=== PATIENT | female | born 1955 | race Caucasian/White ===

== ENCOUNTER → 2016-12-27 | Outpatient (CLI) | payer BC, OTHER ==
--- NOTE | 2016-12-27 10:31 | MM ---
Reason for exam: additional evaluation requested from prior study. Last mammogram was performed 3 years and 6 months ago. History: Patient is postmenopausal. Benign excisional biopsy of the left breast, October 23, 1998. Physical Findings: Nurse did not find any significant physical abnormalities on exam. MG 3D Diag Mammo W/Cad VEGA Spot compression CC view(s) were taken of the right breast. Prior study comparison: July 02, 2013, bilateral MG screening mammo w CAD. Nodular asymmetry centrally right breast CC view. This does not persist on additional views, precautionary 6 month follow up recommended. These results were verbally communicated with the patient and result sheet given to the patient on 12/27/16. ASSESSMENT: Probably benign, BI-RAD 3 RECOMMENDATION: Follow-up diagnostic mammogram of the right breast in 6 months.
== END | disposition home or self-care (01) ==
LOC: RADMAMWWP 08:49
PROVIDERS: ATTEND Ophthalmology
DX: D31.32 Benign neoplasm of left choroid (principal); Z88.5 Allergy status to narcotic agent
CPT/HCPCS: G0204; G0279

== ENCOUNTER → 2022-05-16 | Outpatient (CLI) | payer MEDICARE, BC ==
--- NOTE | 2022-05-16 09:58 | BD ---
EXAMINATION TYPE: Axial Bone Density DATE OF EXAM: 05/16/2022 CLINICAL HISTORY: 67 years old Female. ICD-10 CODE: M81.0 AGE-RELATED OSTEOPOROSIS Height: 66 Weight: 120.7 FRAX RISK QUESTIONS: Alcohol (3 or more units per day): no Family History (Parent hip fracture): no Glucocorticoids (More than 3mos): no History of Fracture in Adulthood: Patella Secondary Osteoporosis: 1. Type 1 Diabetes: no 2. Hyperthyroidism: no 3. Menopause before 45: no 4. Malnutrition: no 5. Chronic liver disease: no Rheumatoid Arthritis: no Current Tobacco Use: no RISK FACTORS HISTORY OF: Hip Fracture (Right/Left): no Spine Fracture: no: History of Wrist Fracture: no Surgery to Spine/Hip(right/left)/Wrist (right/left): no Family History of Osteoporosis: mother Active: yes Diet low in dairy products/other sources of calcium: no Postmenopausal woman: yes Take estrogen and/or progesterone medications: no Lost more than 2 inches in height since high school: no Frequent falls: no Poor Health: no Hyperparathyroidism: no Adrenal Insufficiency: no MEDICATIONS: Prednisone or other steroids: no Thyroid Medications:no Osteoporosis Medications: no Additional Medications: BP Meds, Additional History: EXAM MEASUREMENTS: Bone mineral densitometry was performed using the CURRENT System. Bone mineral density as measured about the Lumbar spine is: ----- L1-L4(G/cm2): 0.906 T Score Values are as follows: ----- L1: -3.1 ----- L2: -2.1 ----- L3: -1.8 ----- L4: -2.3 ----- L1-L4: -2.3 Z Score Values are as follows: ----- L1: -1.2 ----- L2: -0.2 ----- L3: 0.1 ----- L4: -0.3 ----- L1-L4: -0.3 Baseline Study Bone mineral density about the R hip (g/cm2): 0.664 Bone mineral density about the L hip (g/cm2): 0.643 T Score values are as follows: -----R Neck: -3.0 -----L Neck: -29 -----R Total: -2.7 -----L Total: -2.9 Z Score values are as follows: -----R Neck: -1.3 -----L Neck: -1.1 -----R Total: -1.2 -----L Total: -1.4 Baseline Study FRAX%s: The graph provided illustrates a 23.8% chance for a major osteoporotic fx and a 7.7% chance f or the hips probability for fx in 10 years time. IMPRESSION: Osteoporosis (T Score less than -2.5). There is increased fracture risk and therapy is usually indicated based on age. Re-Screen 1-2 years. NOTE: T-SCORE=SD OF THE YOUNG ADULT MEAN.
--- NOTE | 2022-05-17 08:00 | MM ---
Reason for Exam: Screening (asymptomatic). Last mammogram was performed 8 year(s) and 10 month(s) ago. Patient History: Menarche at age 12. First Full-Term at age 22. Hysterectomy at age 36. Postmenopausal. 10/23/1998, Benign Excisional Biopsy on the left side. Risk Values: Catrina 5 year model risk: 1.9%. NCI Lifetime model risk: 7.0%. Prior Study Comparison: 04/29/2005 Bilateral Diagnostic Mammogram, [facility]. 07/02/2013 Bilateral Screening Mammogram, [facility]. 12/27/2016 Bilateral Diagnostic Mammogram, [facility]. Tissue Density: The breast tissue is heterogeneously dense. This may lower the sensitivity of mammography. Findings: Analyzed By CAD. There is no suspicious group of microcalcifications or new suspicious mass in either breast. Overall Assessment: Negative, BI-RAD 1 Management: Screening Mammogram of both breasts in 1 year. A clinical breast exam by your physician is recommended on an annual basis and results should be correlated with mammographic findings. Electronically signed and approved by: Lavelle Oliveira M.D. Radiologis
== END | disposition home or self-care (01) ==
LOC: RADMAMWWP 08:09
PROVIDERS: ATTEND Internal Medicine Geriatric Medicine
DX: Z12.31 Encounter for screening mammogram for malignant neoplasm of breast (principal); M81.0 Age-related osteoporosis without current pathological fracture; Z78.0 Asymptomatic menopausal state
CPT/HCPCS: 77063; 77067; 77080

== ENCOUNTER → 2022-08-01 | Day surgery (SDC) | payer MEDICARE, BC ==
[~2022-08-01] MED LIST: ACETAMINOPHEN TAB 325 MG TAB PO SCH; ACETAMINOPHEN TAB 500 MG TAB PO PRN; BUPIVACAINE (PF) 0.25% 30 ML VIAL SQ ONE; DEXAMETHASONE SOD PHOSPHATE 4 MG/ML 1 ML VIAL IV ONE; GLYCOPYRROLATE 0.2 MG/ML 2 ML VIAL ONE; HEPARIN SODIUM,PORCINE/PF 5,000 UNIT/0.5 ML SYRINGE SQ PRN; IBUPROFEN 600 MG TAB PO SCH; LACTATED RINGERS 1,000 ML IV SCH; LIDOCAINE 2% INJ 20 MG/ML (2 ML VIAL) ONE; MIDAZOLAM 2 MG/2 ML VIAL IVP ONE; ONDANSETRON 4 MG/2 ML VIAL IVP ONE; PROPOFOL 10 MG/ML 20 ML VIAL IV ONE; Pre Op ABX Message 1 EACH MISC MISCELLANE ONE; SODIUM CHLORIDE 0.9% 100 ML BAG ONE; SODIUM CHLORIDE 0.9% 50 ML with ceFAZolin 2,000 MG IV ONE; SUCCINYLCHOLINE CHLORIDE 200 MG/10 ML VIAL IV ONE; ceFAZolin 1,000 MG VIAL ONE; fentaNYL (PF) 50 MCG/ML 2 ML AMP IV PRN; fentaNYL (PF) 50 MCG/ML 2 ML AMP ONE; traMADol 50 MG TAB PO ONE; traMADol 50 MG TAB PO SCH
--- NOTE | 2022-08-01 08:26 | P.GSHP ---
History of Present Illness H&P Date: 08/01/22 Chief Complaint: Right thigh mass, screening 67-year-old female with palpable mass right anterior thigh. Increasing in size. Some pain at times. Here for surgical excision. Patient is also due for screening colonoscopy. Past Medical History Additional Past Medical History / Comment(s): mass to rt groin, osteoporosis, History of Any Multi-Drug Resistant Organisms: None Reported Past Surgical History: Hysterectomy Additional Past Surgical History / Comment(s): colonoscopy, parotid gland removed. lipoma removed. retinol surgery Past Anesthesia/Blood Transfusion Reactions: Postoperative Nausea & Vomiting (PONV) Additional Past Anesthesia/Blood Transfusion Reaction / Comment(s): in the past has had issue, better now Smoking Status: Never smoker - Past Family History Mother Family Medical History: No Reported History Medications and Allergies Home Medications Medication Instructions Recorded Confirmed Type Ibandronate Sodium [Boniva] 150 mg PO Q30D 07/27/22 08/01/22 History Unk Multi Vitamin 1 tab PO DAILY 07/27/22 08/01/22 History Valsartan 320 mg PO DAILY 07/27/22 08/01/22 History Allergies Allergy/AdvReac Type Severity Reaction Status Date / Time codeine AdvReac Nausea & Verified 08/01/22 08:15 Vomiting morphine AdvReac Nausea & Verified 08/01/22 08:15 Vomiting Surgical - Exam Vital Signs Temp Pulse Resp BP Pulse Ox 97.6 F 65 18 124/87 95 08/01/22 08:16 08/01/22 08:16 08/01/22 08:16 08/01/22 08:16 08/01/22 08:16 Physical exam: General: Well-developed, well-nourished HEENT: Normocephalic, sclerae nonicteric Abdomen: Nontender, nondistended Extremities: No edema, 3 x 2 cm mass right anterior thigh Neuro: Alert and oriented Assessment and Plan (1) Mass of thigh Narrative/Plan: Will proceed with excision right thigh mass along with screening colonoscopy at this time. Risks of bleeding, infection, perforation, recurrence, numbness, nerve injury reviewed. She understands wished to proceed. Current Visit: Yes Status: Acute Code(s): R22.40 - LOCALIZED SWELLING, MASS AND LUMP, UNSPECIFIED LOWER LIMB SNOMED Code(s): 127036682
[2022-08-01 10:26] VITALS: TEMP 97.2
--- NOTE | 2022-08-01 10:31 | P.OP ---
Date of Procedure: 08/01/22 Procedure(s) Performed: PREOPERATIVE DIAGNOSIS: Right thigh mass, colon cancer screening POSTOPERATIVE DIAGNOSIS: Incarcerated right femoral hernia, colon polyps, diverticulosis PROCEDURE: Open repair incarcerated right femoral hernia, colonoscopy with snare polypectomy and biopsy SURGEON: Rona EBL: 5 Frances ANESTHESIA: Gen. COMPLICATIONS: None OPERATIVE PROCEDURE: Patient placed in supine position. Patient was placed under general anesthesia. Right groin prepped and draped sterilely. An oblique incision was made overlying the palpable mass in the proximal right anterior thigh. Subcutaneous tissues divided using electrocautery. The patient's lipomatous mass was identified and did in fact represent an incarcerated right femoral hernia. This was followed to the femoral canal. With been ligated and excised using an 0 silk stick tie suture. The remainder of the hernia sac was reduced. The defect was quite small and for that reason no mesh was utilized. The inguinal ligament was sutured down to the underlying pectineus fascia using 2 separate 0 silk sutures. The subcutaneous tissues were then reapproximated using 3-0 Vicryl sutures and the skin using a running 4-0 Monocryl stitch. Skin glue and sterile dressings were applied. Patient was then placed in the left decubitus position. The Olympus colonoscope was inserted into the anus and passed under direct visualization to the base of the cecum. The appendiceal orifice was visualized. From that point the scope was slowly withdrawn inspecting all surfaces carefully. Medially there was noted to be what initially was thought to represent the ileocecal valve mucosal with small bowel mucosa visualized. As this was more closely inspected however I was concerned that there was nodular/polypoid tissue here that may have represented adenomatous polyp. Multiple biopsies of that area took place using the cold biopsy forceps. This area measured approximate 1.5-2 cm in size. The proximal and mid ascending colon appeared normal. At the distal ascending colon 2 polyps were seen. One was slightly larger measuring about 8-9 mm and this was removed using the snare with cautery technique. The smaller 3-4 mm polypoid lesion was removed using the snare with cautery technique as well. The remainder of the transverse, hernan DISPOSITION: Stable to recovery room. Findings discussed with the patient's family. Await biopsy results to decide how to proceed with future endoscopy. Patient will follow-up with me in 1 week.
[2022-08-01 11:09] VITALS: RESP 16
[2022-08-01 12:23] VITALS: BP 123/75; PULSE 72
== END ==
LOC: OR 07:52
PROVIDERS: ATTEND Surgery
DX: Z12.11 Encounter for screening for malignant neoplasm of colon (principal); D12.0 Benign neoplasm of cecum; D12.2 Benign neoplasm of ascending colon; K41.30 Unilateral femoral hernia, with obstruction, without gangrene, not specified as recurrent; K57.30 Diverticulosis of large intestine without perforation or abscess without bleeding; M81.0 Age-related osteoporosis without current pathological fracture; Z98.890 Other specified postprocedural states; Z88.5 Allergy status to narcotic agent; Z79.899 Other long term (current) drug therapy
CPT/HCPCS: 49553; 88305; 45380; 45385; J2250; J0330; J1100; J2405; J0690; J3010; J2704; J1644; J2001; 88302

== ENCOUNTER → 2024-04-16 | Outpatient (CLI) | payer MEDICARE, BC ==
--- NOTE | 2024-04-16 10:52 | MM ---
Reason for Exam: Screening (asymptomatic). Last mammogram was performed 1 year(s) and 11 month(s) ago. Patient History: Menarche at age 12. First Full-Term at age 22. Hysterectomy at age 36. Postmenopausal. 10/23/1998, Benign Excisional Biopsy on the left side. Risk Values: Catrina 5 year model risk: 2.0%. NCI Lifetime model risk: 6.4%. Prior Study Comparison: 07/02/2013 Bilateral Screening Mammogram, [facility]. 12/27/2016 Bilateral Diagnostic Mammogram, [facility]. 05/16/2022 Bilateral MG 3D screening mammo w/cad, [facility]. Tissue Density: The breasts are heterogeneously dense, which may obscure small masses. Findings: Analyzed By CAD. Right breast: There is no suspicious group of microcalcifications or new suspicious mass. Left breast: There is no suspicious group of microcalcifications or new suspicious mass. Overall Assessment: Negative, BI-RAD 1 Management: Screening Mammogram of both breasts in [address] [facility] will attempt to contact patient to return for supplemental views and ultrasound if indicated. Patient should continue monthly self-breast exams. A clinical breast exam by your physician is recommended on an annual basis. This exam should not preclude additional follow-up of suspicious palpable abnormalities. Note on Catrina scores and lifetime risk: 1. A Catrina score greater than 3% is considered moderate risk. If this is the case, consider specialist referral to assess eligibility for a risk reducing agent. 2. If overall lifetime risk for the development of breast cancer is 20% or higher, the patient may qualify for future screening with alternating mammogram and breast MRI. [facility], , 04/16/2024 10:22 AM. Electronically signed and approved by: Bolivar Gonzales DO
== END | disposition home or self-care (01) ==
LOC: RADMAMWWP 09:00
PROVIDERS: ATTEND Internal Medicine Geriatric Medicine
DX: Z12.31 Encounter for screening mammogram for malignant neoplasm of breast (principal); R92.333 Mammographic heterogeneous density, bilateral breasts; Z78.0 Asymptomatic menopausal state
CPT/HCPCS: 77063; 77067